=== PATIENT | male | born 1940 | race Caucasian/White ===

== ENCOUNTER 2016-07-08 12:21 | Emergency (ER) | payer MEDICARE, OTHER ==
[~2016-07-08] VITALS: Ht 182.9 cm; Wt 95.3 kg
[~2016-07-08 12:21] MED LIST: CHOL10003; LACT1CAP66 PO; LOSA100T16 PO; MULT-974 PO; OMG1KC; SILV50CR; TAMS0.4C9 PO; TMSL.4C PO
[2016-07-08] MEDS ORDERED: TAMS0.4C2 (14:30)
[2016-07-08 15:31] LABS: BASOPHILS # (AUTO) 0.1 10^3/uL (0.0-0.1); BASOPHILS % (AUTO) 1 % (0-10); EOSINOPHILS # (AUTO) 0.1 10^3/uL (0.0-0.3); EOSINOPHILS % (AUTO) 2 % (0-10); LYMPHOCYTES # (AUTO) 1.7 X 10^3 (1.0-4.0); LYMPHOCYTES % (AUTO) 23 % (12-44); MEAN CORPUSCULAR HEMOGLOBIN 31 PG (25-34); MEAN CORPUSCULAR HGB CONC 34 G/DL (32-36); MEAN CORPUSCULAR VOLUME 91 FL (80-99); MEAN PLATELET VOLUME 9.5 FL (7.4-10.4); MONOCYTES # (AUTO) 0.8 X 10^3 (0.0-1.0); MONOCYTES % (AUTO) 10 % (0-12); NEUTROPHILS # (AUTO) 4.9 X 10^3 (1.8-7.8); NEUTROPHILS % (AUTO) 65 % (42-75); PLATELET COUNT 193 10^3/uL (130-400); RED CELL DISTRIBUTION WIDTH 13.2 % (10.0-14.5); WHITE BLOOD COUNT 7.6 10^3/uL (4.3-11.0)
[2016-07-08 15:35] LABS: BILIRUBIN,URINE NEGATIVE (NEGATIVE); KETONES,URINE NEGATIVE (NEGATIVE); LEUKOCYTE ESTERASE ,URINE NEGATIVE (NEGATIVE); NITRITE,URINE NEGATIVE (NEGATIVE); PH,URINE 6 (5-9); PROTEIN,URINE NEGATIVE (NEGATIVE); UROBILINOGEN,URINE NORMAL (NORMAL)
[2016-07-08 15:41] LABS: ALANINE AMINOTRANSFERASE 29 U/L (0-55); ALBUMIN 4.3 G/DL (3.2-4.5); ANION GAP 10 MMOL/L (5-14); ASPARTATE AMINO TRANSFERASE 43 U/L (5-34); BLOOD UREA NITROGEN 13 MG/DL (7-18); BUN/CREATININE RATIO 13; CALCIUM 9.6 MG/DL (8.5-10.1); CARBON DIOXIDE 22 MMOL/L (21-32); CHLORIDE 108 MMOL/L (98-107); CREATININE SERUM 0.98 MG/DL (0.60-1.30); GFR ESTIMATED > 60; GLUCOSE 94 MG/DL (70-105); POTASSIUM 4.3 MMOL/L (3.6-5.0); SODIUM 140 MMOL/L (135-145)
[2016-07-08 15:47] LABS: WBC,URINE RARE /HPF
[2016-07-08] MEDS ORDERED: NS 100 ML (IVPB) BAG IV ONE (17:45)
[2016-07-08] MEDS ORDERED: IOHEXOL 350 MG/ML 100 ML (OMNIPAQUE 350) VIAL IV ONE (17:45)
[2016-07-08] MEDS ORDERED: NS IV 1000 ML 1,000 ML IV ONE (18:09)
[2016-07-08] MEDS ORDERED: BISACODYL 10 MG SUPP (DULCOLAX) PR ONE (18:30)
--- NOTE | 2016-07-08 18:45 | Diagnostic Imaging Report ---
PROCEDURE: CT abdomen and pelvis with contrast. TECHNIQUE: Multiple contiguous axial images were obtained through the abdomen and pelvis after administration of intravenous contrast. INDICATION: Inability to void or defecate. COMPARISON: 08/03/2014. FINDINGS: Lower chest: The lung bases are clear. No pericardial or pleural effusion. Peritoneum: No free intraperitoneal air or fluid. Stable hazy appearance of the mesenteric root fat, a nonspecific finding. Liver and biliary system: No concerning hepatic lesion. Stable calcifications in the inferior hepatic lobe. Low-attenuation liver suggests hepatic steatosis. The gallbladder is normal. No biliary duct dilation. Spleen and pancreas: Spleen is normal. The pancreas enhances normally without mass lesion or peripancreatic inflammatory changes. Adrenals: Normal. tract: The kidneys enhance normally without suspicious mass or obstruction. Simple cysts are present in the right kidney, all less than 1 cm in size. Urinary bladder is decompressed by a Beckwith catheter, which limits evaluation. Prostate is not enlarged. GI tract: Stable small hiatus hernia. No gastric wall thickening. No bowel obstruction. There is low-attenuation submucosal thickening of the transverse and descending colon without surrounding inflammatory changes. Rectosigmoid colon is mildly distended with a moderate amount of stool. Ascending colon has a normal appearance with stool present. The appendix is normal. Vasculature and Lymph nodes: Normal caliber aorta. No abdominal or pelvic lymphadenopathy. Musculoskeletal: No concerning osseous lesion. IMPRESSION: 1. No bowel obstruction. There is low-attenuation wall thickening of the transverse and descending colon without surrounding inflammatory changes. This appearance is commonly seen with a subacute colitis. Given that the central mesenteric artery is widely patent, this is likely infectious/inflammatory in etiology. 2. Stable small hiatus hernia. 3. Urinary bladder is decompressed by a Beckwith catheter, which limits evaluation. Dictated by: Dictated on workstation # [id number]
--- NOTE | 2016-07-08 18:58 | ED GI ---
General Chief Complaint: Abdominal/GI Problems Stated Complaint: PAIN IN ABDOMIN/CONSTIPATION Nursing Triage Note: Abd pain and unable to have a BM x2 Days. Having some difficulty Urinating. Took Mirilax without results Yesterday. Sepsis Screen: No Definite Risk History of Present Illness Time Seen By Provider: 17:00 Initial Comments Evaluation for inability to urinate since 0800 and constipation, since 07/06/16. He denies any nausea, diarrhea or vomiting. He denies any back problems or numbness, radiculopathy in the lower extremities. He ate breakfast this morning and has been having liquid since then did not eat anything for lunch. He was admitted in 2014 at this facility for a bowel obstruction. He saw Dr. Maurice recently for prostate exam and had a colonoscopy done at [facility] in the last few months Timing/Duration: 2-3 Days Severity/Quality: Moderate (generalized abdominal pain) Location: Generalized Abdomen Radiation: No Radiation Activities at Onset: None Modifying Factors: Improves With Lying down, Improves With Resting Associated Symptoms: Denies Symptoms Allergies and Home Medications Allergies Coded Allergies: Penicillins (Verified Allergy, Mild, 04/04/09) doxycycline (Verified Allergy, Unknown, 10/23/05) Home Medications Lactobacillus Combination No.4 1 Each Capsule, 1 TAB PO DAILY, (Reported) Losartan Potassium 100 Mg Tablet, 100 MG PO DAILY, (Reported) Multivitamin 1 Each Tablet, 1 TAB PO DAILY, (Reported) Tamsulosin HCl 0.4 Mg Cap.er.24h, 0.4 MG PO 1800, (Reported) Tamsulosin HCl 0.4 Mg Cap.er.24h, #90 (Reported) Review of Systems Constitutional: no symptoms reported, see HPI EENTM: No Symptoms Reported, See HPI Respiratory: No Symptoms Reported, See HPI Cardiovascular: No Symptoms Reported, See HPI Gastrointestinal: See HPI, Abdomen Distended, Abdominal Pain, Constipated, Denies Diarrhea, Denies Difficulty Swallowing, Denies Nausea, Poor Appetite, Denies Vomiting Genitourinary: See HPI, Other (inability to urinate) Musculoskeletal: no symptoms reported, see HPI Skin: no symptoms reported, see HPI Psychiatric/Neurological: No Symptoms Reported, See HPI Endocrine: No Symptoms Reported, See HPI Hematologic/Lymphatic: No Symptoms Reported, See HPI All Other Systems Reviewed Negative Unless Noted: Yes Past Jlwflmb-Orahhx-Pbxkam Hx Patient Social History Recent Foreign Travel: No Contact w/Someone Who Travel: No Recent Infectious Disease Expo: No Recent Hopitalizations: No Immunizations Up To Date Tetanus Booster (TDap): Unknown Seasonal Allergies Seasonal Allergies: No Surgeries HX Surgeries: Yes Surgeries: Abdominal Respiratory Hx Respiratory Disorders: Yes Respiratory Disorders: Pneumonia Cardiovascular Hx Cardiac Disorders: No Neurological Hx Neurological Disorders: No Reproductive System Hx Reproductive Disorders: No Sexually Transmitted Disease: No HIV/AIDS: No Genitourinary Hx Genitourinary Disorders: No Gastrointestinal Hx Gastrointestinal Disorders: Yes (bowel obstructions) Musculoskeletal Hx Musculoskeletal Disorders: No Endocrine Hx Endocrine Disorders: No HEENT HX ENT Disorders: No Cancer Hx Cancer: No Psychosocial Hx Psychiatric Problems: No Integumentary HX Skin/Integumentary Disorder: No Blood Transfusions Hx Blood Disorders: No Adverse Reaction to a Blood Tr: No Reviewed Nursing Assessment Reviewed/Agree w Nursing PMH: Yes Physical Exam Vital Signs VS - Last 72 Hours, by Label 07/08/16 07/08/16 13:23 20:51 Temp 96.0 96.0 Pulse 86 80 Resp 20 16 B/P (MAP) 142/74 Pulse Ox 96 96 O2 Flow Rate 0 0 Capillary Refill : Less Than 3 Seconds General Appearance: WD/WN, no apparent distress HEENT: PERRL/EOMI, normal ENT inspection, TMs normal, pharynx normal Neck: non-tender, full range of motion, supple, normal inspection Respiratory: chest non-tender, lungs clear, normal breath sounds Cardiovascular: normal peripheral pulses, regular rate, rhythm, no murmur Gastrointestinal: no organomegaly, no pulsatile mass, abnormal bowel sounds, distended, No guarding, No rebound, tenderness, No hernia, other (hypoactive bowel sounds) Rectal: normal exam, normal rectal tone, No tenderness, other (stool present) Extremities: normal range of motion, non-tender Male: normal genitalia, normal prostate, no hernia, No inguinal tenderness, No testicular tenderness, other (Beckwith catheter in place, 900 ml output since insertion) Neurologic/Psychiatric: no motor/sensory deficits, alert, normal mood/affect, oriented x 3, other (Power V/V L4-S1 bilat LEs. ) Skin: normal color, warm/dry Lymphatic: no adenopathy Progress/Results/Core Measures Results/Orders Lab Results Laboratory Tests Test 07/08/16 15:00 07/08/16 15:10 Range/Units Urine Color YELLOW Urine Clarity CLEAR Urine pH 6 5-9 Urine Specific [place] 1.010 L 1.016-1.022 Urine Protein NEGATIVE NEGATIVE Urine Glucose (UA) NEGATIVE NEGATIVE Urine Ketones NEGATIVE NEGATIVE Urine Nitrite NEGATIVE NEGATIVE Urine Bilirubin NEGATIVE NEGATIVE Urine Urobilinogen NORMAL NORMAL MG/DL Urine Leukocyte Esterase NEGATIVE NEGATIVE Urine RBC (Auto) NEGATIVE NEGATIVE Urine RBC RARE /HPF Urine WBC RARE /HPF Urine Crystals NONE /LPF Urine Bacteria NEGATIVE /HPF Urine Casts NONE /LPF Urine Mucus NEGATIVE /LPF Urine Culture Indicated NO White Blood Count 7.6 4.3-11.0 10^3/uL Red Blood Count 4.80 4.35-5.85 10^6/uL Hemoglobin 15.0 13.3-17.7 G/DL Hematocrit 44 40-54 % Mean Corpuscular Volume 91 80-99 FL Mean Corpuscular Hemoglobin 31 25-34 PG Mean Corpuscular Hemoglobin Concent 34 32-36 G/DL Red Cell Distribution Width 13.2 10.0-14.5 % Platelet Count 193 130-400 10^3/uL Mean Platelet Volume 9.5 7.4-10.4 FL Neutrophils (%) (Auto) 65 42-75 % Lymphocytes (%) (Auto) 23 12-44 % Monocytes (%) (Auto) 10 0-12 % Eosinophils (%) (Auto) 2 0-10 % Basophils (%) (Auto) 1 0-10 % Neutrophils # (Auto) 4.9 1.8-7.8 X 10^3 Lymphocytes # (Auto) 1.7 1.0-4.0 X 10^3 Monocytes # (Auto) 0.8 0.0-1.0 X 10^3 Eosinophils # (Auto) 0.1 0.0-0.3 10^3/uL Basophils # (Auto) 0.1 0.0-0.1 10^3/uL Sodium Level 140 135-145 MMOL/L Potassium Level 4.3 3.6-5.0 MMOL/L Chloride Level 108 H 98-107 MMOL/L Carbon Dioxide Level 22 21-32 MMOL/L Anion Gap 10 5-14 MMOL/L Blood Urea Nitrogen 13 7-18 MG/DL Creatinine 0.98 0.60-1.30 MG/DL Estimat Glomerular Filtration Rate > 60 BUN/Creatinine Ratio 13 Glucose Level 94 70-105 MG/DL Calcium Level 9.6 8.5-10.1 MG/DL Total Bilirubin 1.0 0.1-1.0 MG/DL Aspartate Amino Transf (AST/SGOT) 43 H 5-34 U/L Alanine Aminotransferase (ALT/SGPT) 29 0-55 U/L Alkaline Phosphatase 53 40-136 U/L Total Protein 7.0 6.4-8.2 G/DL Albumin 4.3 3.2-4.5 G/DL My Orders Orders - MARYANN PINEDA Ct Abdomen/Pelvis W (07/08/16 17:29) Iohexol Injection (Omnipaque 350 Mg/Ml 1 (07/08/16 17:45) Ns (Ivpb) (Sodium Chloride 0.9% Ivpb Bag (07/08/16 17:45) Saline Lock/Iv-Start (07/08/16 18:09) Ns Iv 1000 Ml (Sodium Chloride 0.9%) (07/08/16 18:09) Bisacodyl Suppository (Dulcolax Supposit (07/08/16 18:30) Na Phos/Na Biphos Enema (Fleet Enema Enrique (07/08/16 19:30) Medications Given in ED Current Medications Medications Dose Ordered Sig/Cheryl Route Start Time Stop Time Status Last Admin Dose Admin Bisacodyl 20 mg ONCE ONCE MN 07/08/16 18:30 07/08/16 18:31 DC 07/08/16 18:25 20 MG Iohexol 100 ml ONCE ONCE IV 07/08/16 17:45 07/08/16 17:46 DC 07/08/16 17:51 100 ML Sodium Biphosphate/ Sodium Phosphate 1 ea ONCE ONCE MN 07/08/16 19:30 07/08/16 19:31 DC 07/08/16 19:40 1 EA Sodium Chloride 100 ml ONCE ONCE IV 07/08/16 17:45 07/08/16 17:46 DC 07/08/16 17:51 80 ML Sodium Chloride 1,000 ml @ 0 mls/hr Q0M ONCE IV 07/08/16 18:09 07/08/16 18:10 DC 07/08/16 18:17 0 MLS/HR Vital Signs/I&O Vital Sign - Last 12Hours 07/08/16 07/08/16 13:23 20:51 Temp 96.0 96.0 Pulse 86 80 Resp 20 16 B/P (MAP) 142/74 Pulse Ox 96 96 O2 Flow Rate 0 0 Blood Pressure Mean: 96 Progress Note : Time: 17:00 Progress Note Initial evaluation completed, recommended CT abdomen and pelvis. Neurological exam intact, no symptoms and signs of cauda equina. [address] discussed with the patient and his , large retained stool in the rectum. No signs of bowel obstruction. CT and exam reviewed with Dr. Miller who agreed with the interpretation and plan of care. 1829 Dulcolax 10 mg suppository 2, inserted to the right and left of the stool mass in the rectum. Stool is soft. 1929 patient denies any results from Dulcolax suppositories. He is not on the toilet on 2 occasions. He is ambulating in the exam room. Recommended Fleet's enema. 1944 patient able to retain the enema for approximately 15 minutes. Ambulated to bathroom and reports that he had a small amount of stool. He is reporting decreased abdominal pain. Like to consider discharge to home. Discussed that we must remove the Beckwith catheter and see that he is able to urinate 2229 patient ambulated in room. Reports that he passing flatus. Reports small passage of stool and able to urinate. He verbalized understanding of importance to return to emergency department if symptoms worsen or he is unable to pass stool or urine. Diagnostic Imaging Diagonstic Imaging: CT Plain Films/CT/US/NM/MRI: abdomen, pelvis Comments NAME: ANAHI IBRAHIM Josh [facility] REC#: [id number] PT STATUS: REG ER : 1940 PHYSICIAN: MARYANN PINEDA ADMIT DATE: 07/08/16/ER Draft Date of Exam:07/08/16 CT ABDOMEN/PELVIS W PROCEDURE: CT abdomen and pelvis with contrast. TECHNIQUE: Multiple contiguous axial images were obtained through the abdomen and pelvis after administration of intravenous contrast. INDICATION: Inability to void or defecate. COMPARISON: 08/03/2014. FINDINGS: Lower chest: The lung bases are clear. No pericardial or pleural effusion. Peritoneum: No free intraperitoneal air or fluid. Stable hazy appearance of the mesenteric root fat, a nonspecific finding. Liver and biliary system: No concerning hepatic lesion. Stable calcifications in the inferior hepatic lobe. Low-attenuation liver suggests hepatic steatosis. The gallbladder is normal. No biliary duct dilation. Spleen and pancreas: Spleen is normal. The pancreas enhances normally without mass lesion or peripancreatic inflammatory changes. Adrenals: Normal. tract: The kidneys enhance normally without suspicious mass or obstruction. Simple cysts are present in the right kidney, all less than 1 cm in size. Urinary bladder is decompressed by a Beckwith catheter, which limits evaluation. Prostate is not enlarged. GI tract: Stable small hiatus hernia. No gastric wall thickening. No bowel obstruction. There is low-attenuation submucosal thickening of the transverse and descending colon without surrounding inflammatory changes. Rectosigmoid colon is mildly distended with a moderate amount of stool. Ascending colon has a normal appearance with stool present. The appendix is normal. Vasculature and Lymph nodes: Normal caliber aorta. No abdominal or pelvic lymphadenopathy. Musculoskeletal: No concerning osseous lesion. IMPRESSION: 1. No bowel obstruction. There is low-attenuation wall thickening of the transverse and descending colon without surrounding inflammatory changes. This appearance is commonly seen with a subacute colitis. Given that the central mesenteric artery is widely patent, this is likely infectious/inflammatory in etiology. 2. Stable small hiatus hernia. 3. Urinary bladder is decompressed by a Beckwith catheter, which limits evaluation. Dictated on workstation # [id number] Dict: 07/08/16 1811 Trans: 07/08/16 1844 [id number] Interpreted by: RUBI RANKIN MD Electronically signed by: Reviewed: Reviewed by Me Departure Impression Impression: Primary Impression: Constipation Qualified Codes: K59.00 - Constipation, unspecified Additional Impression: Acute urinary retention Disposition: 01 HOME, SELF-CARE Condition: Improved Departure-Patient Inst. Decision time for Depature: 20:15 Referrals: JENNIFER JOAQUIN DO (PCP/Family) Primary Care Physician Patient Instructions: Constipation, Adult (DC), Urinary Retention (DC) Add. Discharge Instructions: All discharge instructions reviewed with patient and/or family. Voiced understanding. Return to emergency department for increased abdominal pain, inability to urinate or pass stool. Increase oral fluid intake. Copy Copies To 1: JENNIFER JOAQUIN AMY ARNP Jul 08, 2016 18:58
[2016-07-08] MEDS ORDERED: FLEET ENEMA ADULT 1 EA BTL PR ONE (19:30)
[2016-07-08 20:51] VITALS: BP 138/76
--- OUTSIDE RECORDS SUMMARY | 2016-08-01 06:31 | XMS REPORT | Continuity of Care Document ---
Author Author [facility] Address Unknown Phone Unavailable Allergies Active Description Code Type Severity Reaction Onset Reported/Identified Relationship to Patient Clinical Status Yes doxycycline [id number] Drug Allergy Unknown N/A 10/23/2005 Yes Penicillins [id number] Drug Allergy Mild N/A 04/04/2009 Medications Problems Date Dx Coded Attending Type Code Diagnosis Diagnosed By 01/04/2011 Ot 787.99 OTHER GI SYSTEM SYMPTOMS 01/04/2011 Ot V12.72 PERSONAL HISTORY OF COLONIC POLYPS 11/20/2013 SAMI LAZAR, KAREEM Alonso Ot 289.2 MESENTERIC LYMPHADENITIS 11/20/2013 SAMI LAZAR, KAREEM Alonso Ot 564.00 UNSPEC CONSTIPATION 11/20/2013 SAMI LAZAR, KAREEM Aolnso Ot 599.60 URINARY OBSTRUCTION, UNSPECIFIED 11/20/2013 SAMI LAZAR, KAREEM Alonso Ot 789.00 ABDOMINAL PAIN, UNSPECIFIED SITE 08/03/2014 JENNIFER JOAQUIN DO Ot 780.79 08/03/2014 JENNIFER JOAQUIN DO Ot V12.61 08/05/2014 JENNIFER JOAQUIN DO Ot 276.51 08/05/2014 JENNIFER JOAQUIN DO Ot 560.9 08/05/2014 JENNIFER JOAQUIN DO Ot 569.49 08/05/2014 JENNIFER JOAQUIN DO Ot 600.90 08/05/2014 JENNIFER JOAQUIN DO Ot V03.82 08/05/2014 JENNIFER JOAQUIN DO Ot V12.59 08/05/2014 JENNIFER JOAQUIN DO Ot V12.72 08/06/2014 JENNIFER JOAQUIN DO Ot 276.51 DEHYDRATION 08/06/2014 JENNIFER JOAQUIN DO Ot 327.23 OBSTRUCTIVE SLEEP APNEA (ADULT) ( PEDIATR 08/06/2014 JENNIFER JOAQUIN DO Ot 401.9 HYPERTENSION NOS 08/06/2014 JENNIFER JOAQUIN DO Ot 560.9 INTESTINAL OBSTRUCT NOS 08/06/2014 JENNIFER JOAQUIN DO Ot 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 08/06/2014 JENNIFER JOAQUIN DO Ot 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, UNSPEC, 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 08/06/2014 JENNIFER JOAQUIN DO Ot V03.82 PROPHYLACTIC VACC AGAINST STREPTOCOCCUS 08/06/2014 JENNIFER JOAQUIN DO Ot V12.59 08/06/2014 JENNIFER JOAQUIN DO Ot V12.72 PERSONAL HISTORY OF COLONIC POLYPS 08/13/2014 JENNIFER JOAQUIN DO Ot 780.79 08/13/2014 JENNIFER JOAQUIN DO Ot V12.61 12/01/2015 JENNIFER JOAQUIN DO, Ot 780.79 OTH MALAISE FATIGUE 12/01/2015 JENNIFER JOAQUIN DO Ot V12.61 PERSONAL HISTORY, PNEUMONIA (RECURRENT ) 12/02/2015 JENNIFER JOAQUIN DO Ot R07.89 OTHER CHEST PAIN 12/02/2015 JENNIFER JOAQUIN DO Ot G47.33 OBSTRUCTIVE SLEEP APNEA (ADULT) ( PEDIATR 12/02/2015 JENNIFER JOAQUIN DO Ot I10 ESSENTIAL (PRIMARY) HYPERTENSION 12/02/2015 JENNIFER JOAQUIN DO Ot R07.89 OTHER CHEST PAIN 12/02/2015 JENNIFER JOAQUIN DO Ot R53.81 OTHER MALAISE 12/05/2015 JENNIFER JOAQUIN DO Ot 780.79 OT MALAISE FATIGUE 12/05/2015 JENNIFER JOAQUIN DO Ot V12.61 PERSONAL HISTORY, PNEUMONIA (RECURRENT ) 12/05/2015 JENNIFER JOAQUIN DO Ot G47.33 OBSTRUCTIVE SLEEP APNEA (ADULT) ( PEDIATR 12/05/2015 JENNIFER JOAQUIN DO Ot I10 ESSENTIAL (PRIMARY) HYPERTENSION 12/05/2015 JENNIFER JOAQUIN DO Ot R07.89 OTHER CHEST PAIN 12/05/2015 JENNIFER JOAQUIN DO Ot R53.81 OTHER MALAISE 12/26/2015 JENNIFER JOAQUIN DO Ot G47.33 OBSTRUCTIVE SLEEP APNEA (ADULT) ( PEDIATR 12/26/2015 JENNIFER JOAQUIN DO Ot I10 ESSENTIAL (PRIMARY) HYPERTENSION 12/26/2015 JENNIFER JOAQUIN DO Ot R07.89 OTHER CHEST PAIN 12/26/2015 JENNIFER JOAQUIN DO, Ot R53.81 OTHER MALAISE 07/08/2016 MARYANN PINEDAP Ot K44.9 DIAPHRAGMATIC HERNIA WITHOUT OBSTRUCTION 07/08/2016 EDWIN, MARYANN MARTP Ot K59.00 CONSTIPATION, UNSPECIFIED 07/08/2016 EDWIN, MARYANN MARTP Ot R33.9 RETENTION OF URINE, UNSPECIFIED 07/09/2016 MARYANN PINEDAP Ot K44.9 DIAPHRAGMATIC HERNIA WITHOUT OBSTRUCTION 07/09/2016 MARYANN PINEDAP Ot K59.00 CONSTIPATION, UNSPECIFIED 07/09/2016 EDWIN, MARYANN MARTP Ot R33.9 RETENTION OF URINE, UNSPECIFIED 07/16/2016 JENNIFER JOAQUIN DO Ot 780.79 OTH MALAISE FATIGUE 07/16/2016 JENNIFER JOAQUIN DO Ot V12.61 PERSONAL HISTORY, PNEUMONIA (RECURRENT ) 07/16/2016 JENNIFER JOAQUIN DO, Ot G47.33 OBSTRUCTIVE SLEEP APNEA (ADULT) ( PEDIATR 07/16/2016 JENNIFER JOAQUIN DO Ot I10 ESSENTIAL (PRIMARY) HYPERTENSION 07/16/2016 JENNIFER JOAQUIN DO Ot R07.89 OTHER CHEST PAIN 07/16/2016 JENNIFER JOAQUIN DO, Ot R53.81 OTHER MALAISE Procedures Results Test Result Range Complete urinalysis with reflex to culture - 07/08/16 15:00 Urine color determination YELLOW NRG Urine clarity determination CLEAR NRG Urine pH measurement by test strip 6 5- 9 Specific gravity of urine by test strip 1.010 1.016-1.022 Urine protein assay by test strip, semi-quantitative NEGATIVE NEGATIVE Urine glucose detection by automated test strip NEGATIVE NEGATIVE Erythrocytes detection in urine sediment by light microscopy NEGATIVE NEGATIVE Urine ketones detection by automated test strip NEGATIVE NEGATIVE Urine nitrite detection by test strip NEGATIVE NEGATIVE Urine total bilirubin detection by test strip NEGATIVE NEGATIVE Urine urobilinogen measurement by automated test strip (mass/volume) NORMAL NORMAL Urine leukocyte esterase detection by dipstick NEGATIVE NEGATIVE Automated urine sediment erythrocyte count by microscopy (number/high power field) RARE NRG Automated urine sediment leukocyte count by microscopy (number/high power field ) RARE NRG Bacteria detection in urine sediment by light microscopy NEGATIVE NRG Crystals detection in urine sediment by light microscopy NONE NRG Casts detection in urine sediment by light microscopy NONE NRG Mucus detection in urine sediment by light microscopy NEGATIVE NRG Complete urinalysis with reflex to culture NO NRG Complete blood count (CBC) with automated white blood cell (WBC) differential - 07/08/16 15:10 Blood leukocytes automated count (number/volume) 7.6 10*3/ uL 4.3-11.0 Blood erythrocytes automated count (number/volume) 4.80 10*6 /uL 4.35-5.85 Venous blood hemoglobin measurement (mass/volume) 15.0 g/dL 13.3-17.7 Blood hematocrit (volume fraction) 44 % 40-54 Automated erythrocyte mean corpuscular volume 91 [foz_us] 80-99 Automated erythrocyte mean corpuscular hemoglobin (mass per erythrocyte) 31 pg 25-34 Automated erythrocyte mean corpuscular hemoglobin concentration measurement ( mass/volume) 34 g/dL 32-36 Automated erythrocyte distribution width ratio 13.2 % 10.0-14.5 Automated blood platelet count (count/volume) 193 10*3/uL 130-400 Automated blood platelet mean volume measurement 9.5 [foz_us ] 7.4-10.4 Automated blood neutrophils/100 leukocytes 65 % 42-75 Automated blood lymphocytes/100 leukocytes 23 % 12-44 Blood monocytes/100 leukocytes 10 % 0-12 Automated blood eosinophils/100 leukocytes 2 % 0-10 Automated blood basophils/100 leukocytes 1 % 0-10 Blood neutrophils automated count (number/volume) 4.9 10*3 1.8-7.8 Blood lymphocytes automated count (number/volume) 1.7 10*3 1.0-4.0 Blood monocytes automated count (number/volume) 0.8 10*3 0.0-1.0 Automated eosinophil count 0.1 10*3/uL 0.0-0.3 Automated blood basophil count (count/volume) 0.1 10*3/uL 0.0-0.1 Comprehensive metabolic panel - 07/08/16 15:10 Serum or plasma sodium measurement (moles/volume) 140 mmol/ L 135-145 Serum or plasma potassium measurement (moles/volume) 4.3 mmol/L 3.6-5.0 Serum or plasma chloride measurement (moles/volume) 108 mmol /L 98-107 Carbon dioxide 22 mmol/L 21-32 Serum or plasma anion gap determination (moles/volume) 10 mmol/L 5-14 Serum or plasma urea nitrogen measurement (mass/volume) 13 mg/dL 7-18 Serum or plasma creatinine measurement (mass/volume) 0.98 mg /dL 0.60-1.30 Serum or plasma urea nitrogen/creatinine mass ratio 13 NRG Serum or plasma creatinine measurement with calculation of estimated glomerular filtration rate > NRG Serum or plasma glucose measurement (mass/volume) 94 mg/dL 70-105 Serum or plasma calcium measurement (mass/volume) 9.6 mg/dL 8.5-10.1 Serum or plasma total bilirubin measurement (mass/volume) 1.0 mg/dL 0.1-1.0 Serum or plasma alkaline phosphatase measurement (enzymatic activity/volume) 53 U/L 40-136 Serum or plasma aspartate aminotransferase measurement (enzymatic activity/ volume) 43 U/L 5-34 Serum or plasma alanine aminotransferase measurement (enzymatic activity/volume ) 29 U/L 0-55 Serum or plasma protein measurement (mass/volume) 7.0 g/dL 6.4-8.2 Serum or plasma albumin measurement (mass/volume) 4.3 g/dL 3.2-4.5 Encounters ACCT No. Visit Date/Time Discharge Status Pt. Type Provider Facility Loc./Unit Complaint [id number] 03/28/2014 11:36:01 03/28/2014 23: 59:59 [facility] Outpatient Taylor Saldivar [id number] 01/15/2014 10:46:03 01/15/2014 23: 59:59 [facility] Outpatient Taylor Saldivar
== END 2016-07-08 20:55 | disposition home or self-care (01) ==
LOC: EDUNIT# 12:21 → ER 12:24
DX: K59.00 Constipation, unspecified (principal); R33.9 Retention of urine, unspecified; K44.9 Diaphragmatic hernia without obstruction or gangrene
CPT/HCPCS: 36415; 51702; 74177; 80053; 81000; 85025; 96360

== ENCOUNTER 2016-08-25 06:41 | Day surgery (SDC) | payer MEDICARE, OTHER ==
[~2016-08-25] VITALS: Ht 182.9 cm; Wt 92.1 kg
[2016-08-25] VITALS (10 sets, daily range): BP systolic 125–160; BP diastolic 76–90
[~2016-08-25 06:41] MED LIST changes: +TAMS0.4C2
[2016-08-25] MEDS ORDERED: HEParin (CATH LAB) 2,000 ML IV ONE (06:50)
[2016-08-25] MEDS ORDERED: LIDOCAINE 1% INJ 20 ML (XYLOCAINE) VIAL ONE (06:50)
[2016-08-25] MEDS ORDERED: NS IV 1000 ML 1,000 ML ONE (06:50)
[2016-08-25] MEDS ORDERED: NS IV 1000 ML 1,000 ML IV SCH ×3 (07:01→09:09)
[2016-08-25 07:22] LABS: BILIRUBIN,URINE NEGATIVE (NEGATIVE); KETONES,URINE NEGATIVE (NEGATIVE); LEUKOCYTE ESTERASE ,URINE NEGATIVE (NEGATIVE); MEAN PLATELET VOLUME 8.9 FL (7.4-10.4); NITRITE,URINE NEGATIVE (NEGATIVE); PH,URINE 7 (5-9); PROTEIN,URINE NEGATIVE (NEGATIVE); RED BLOOD COUNT 5.07 10^6/uL (4.35-5.85); RED CELL DISTRIBUTION WIDTH 13.2 % (10.0-14.5); UROBILINOGEN,URINE NORMAL (NORMAL); WHITE BLOOD COUNT 5.3 10^3/uL (4.3-11.0)
[2016-08-25 07:33] LABS: PROTHROMBIN TIME PATIENT 12.8 SEC (12.2-14.7)
[2016-08-25] MEDS ORDERED: fentaNYL INJECTION 100 MCG/2 ML AMP ONE (07:36)
[2016-08-25] MEDS ORDERED: MIDAZOLAM 5 MG/5 ML (VERSED) VIAL ONE (07:36)
[2016-08-25 07:44] LABS: ALANINE AMINOTRANSFERASE 28 U/L (0-55); ALBUMIN 4.4 G/DL (3.2-4.5); ANION GAP 8 MMOL/L (5-14); ASPARTATE AMINO TRANSFERASE 34 U/L (5-34); BILIRUBIN,TOTAL 0.8 MG/DL (0.1-1.0); BLOOD UREA NITROGEN 11 MG/DL (7-18); BUN/CREATININE RATIO 11; CALCIUM 9.7 MG/DL (8.5-10.1); CARBON DIOXIDE 24 MMOL/L (21-32); CHLORIDE 108 MMOL/L (98-107); CHOLESTEROL 135 MG/DL (< 200); CREATININE SERUM 0.97 MG/DL (0.60-1.30); DIRECT LDL 101 MG/DL (1-129); GFR ESTIMATED > 60; GLUCOSE 100 MG/DL (70-105); POTASSIUM 4.2 MMOL/L (3.6-5.0); SODIUM 140 MMOL/L (135-145); TRIGLYCERIDES 105 MG/DL (<150); VLDL CHOLESTEROL 21 MG/DL (5-40)
--- NOTE | 2016-08-25 08:33 | Diagnostic Imaging Report ---
Portable upright radiograph of the chest. INDICATION: Hypertension. Chest pain. FINDINGS: The lungs appear clear. The heart size is at the upper limits of normal. No effusion or pneumothorax. The mediastinum and judi appear unremarkable. IMPRESSION: Unremarkable exam. Dictated by: Dictated on workstation # [id number]
--- NOTE | 2016-08-25 08:34 | Cardiac Procedure Note-CS/ASA ---
Pre-Procedure Note Pre-Op Procedure Note H&P Reviewed The H&P was reviewed, patient examined and no changes noted. Date H&P Reviewed: August 25, 2016 Time H&P Reviewed: 08:34 Conscious Sedation Pre-Proced Time Reviewed: 08:34 ASA Class: 3 Airway Mallampati Classification: ([place] appropriate class) I. II. III, IV Lungs Heart ASA score ASA 1: a normal healthy patient x ASA 2: a patient with a mild systemic disease (mid diabetes, controlled hypertension, obesity ASA 3: a patient with a severe systemic disease that limits activity (angina , COPD, prior Myocardial infarction) ASA 4: a patient with an incapacitating disease that is a constant threat to life (CHF, renal failure) ASA 5: a moribund patient not expected to survive 24 hrs. (ruptured aneurysm) ASA 6: a declared brain patient whose organs are being harvested. For emergent operations, add the letter E after the classification Grade 3 Sedation Plan: Analgesia, Amnesia, Plan communicated to team members, Discussed options with patient/fam, Discussed risks with patient/fam Note The patient is an appropriate candidate to undergo the planned procedure, sedation, and anesthesia. The patient immediately re-assessed prior to indication. STIVEN BLUE MD August 25, 2016 08:34
[2016-08-25] MEDS ORDERED: HEParin (CATH LAB) 1,000 ML IV ONE (08:44)
--- NOTE | 2016-08-25 09:14 | Discharge Inst-Post CATH ---
Discharge Inst-CATH Post Cardiac Cath D/C Inst Follow Up/Plan Appointment with Dr Mckeon's office in 2- 4 weeks CARDIAC CATH DISCHARGE INSTRUCTIONS *Hold Metformin for 48 hours post heart cath. ACTIVITY * Go Home directly and rest. * Limit activity of the leg (or wrist if it was used) for 7 days including aerobics, swimming, jogging, bicycling, etc. * Restrict stair-climbing for 7 days if possible, if not, climb up with your non -cath leg, then bring together on the same step. * Avoid lifting, pushing, pulling or excessive movement of the affected extremity for 7 days. * Customary sexual activity may be resumed after 2 days-use caution not to use a position that strains or causes pain to the affected extremity. * No driving for 24 hours. * NO SMOKING. * Avoid straining for bowel movements for 7 days. * Gentle walking on level ground is allowed. * Returning to work will depend on the type of procedure and the results. Your doctor will discuss this with you. CALL YOUR DOCTOR FOR ANY OF THE FOLLOWING: *If bleeding from the puncture site occurs- Apply gentle pressure to site with clean cloth and call your doctor or EMS. * If a knot or lump forms under the skin, increases in size, or causes pain. * If bruising appears to be worsening or moving further down your leg instead of disappearing. * Temperature above 101 F. CARE OF YOUR GROIN INCISION; * Bruising or purple discoloration of the skin near the puncture site is common. * You may shower only, no bathtub bathing for 5 days. Be careful to avoid slipping as your leg may feel stiff. * If a closure device was used on your femoral artery, please see the attached guide regarding care of the device and your leg. * REMOVE the dressing from your groin the next day after your procedure in the shower. CARE OF YOUR WRIST INCISION; * Bruising or purple discoloration of the skin near the puncture site is common. * You may shower. * DO NOT submerge wrist. * Remove dressing in 24 hours. STIVEN MCKEON MD August 25, 2016 09:14
[2016-08-25] MEDS ORDERED: PATIENT MAY USE OWN MEDS, ALL PO SCH (09:15)
--- NOTE | 2016-08-26 08:41 | CARDIAC CATHETERIZATION ---
DATE OF SERVICE: 08/25/2016 CARDIAC CATHETERIZATION BRIEF HISTORY OF PRESENT ILLNESS: The patient is a 76-year-old gentleman with history of hypertension, hyperlipidemia. The patient had an abnormal stress test. He was scheduled for left heart catheterization, possible PTCA. TopofForm PROCEDURE NOTE: After explaining the procedure to the patient, all pros and cons were explained, all questions were answered. The patient signed the consent. Then he was placed on the cardiac catheterization laboratory. Right groin was prepped in a sterile fashion. Local anesthesia applied to the right groin. A 6-Persian sheath was placed in the right femoral artery. A combination of right and left Craig catheters were used to access the right and left coronary system. Multiple views were obtained. A pigtail catheter was advanced to the left ventricular cavity. Pressure was measured. Pullback LV to aorta was done. Aortic arch angiogram was done. At the end of the procedure, sheath was removed. Manual pressure applied. Hemostasis achieved. FINDINGS: HEMODYNAMICS: LV pressure 119/13, end diastolic pressure of 13, aortic pressure 112/57, mean of 55. No significant gradient across the aortic valve. ANATOMY: 1. Left main coronary artery is bifurcating into left anterior descending and left circumflex artery with no obstructive disease. 2. Left anterior descending artery is moderate in size, wrapping around the apex with no obstructive disease. 3. Left circumflex artery is a codominant artery with no significant obstructive disease. 4. Right coronary artery is moderate in size, codominant artery with mild disease, nonobstructive disease. 5. No left ventriculogram was done. Normal left ventricular end diastolic pressure. 6. Aortic arch angiogram appeared to be normal in size, no dissection or aneurysm. Origins of the innominate artery, left carotid and left subclavian arteries appeared to be slightly tortuous, but no objective disease was noted. CONCLUSIONS: 1. Mild coronary artery disease, no significant obstructive disease. 2. Normal aortic arch and great neck vessels. 3. Normal left ventricular end diastolic pressure. DISCUSSION AND RECOMMENDATIONS: Medical therapy is recommended. No intervention is warranted. FINAL DIAGNOSIS: 1. Coronary artery disease. 2. Shortness of breath. 3. Hypertension. Job ID: [id number] DocumentID: [id number] Dictated Date: 08/25/2016 09:10:36 [place] Date: 08/25/2016 19:37:05 Dictated By: STIVEN BLUE MD
== END 2016-08-25 13:25 | disposition home or self-care (01) ==
LOC: CATH 06:41 → SURG 09:30 → CATH 13:25
PROVIDERS: ATTEND Internal Medicine Cardiovascular Disease
DX: R94.39 Abnormal result of other cardiovascular function study (principal); I25.10 Atherosclerotic heart disease of native coronary artery without angina pectoris; E78.5 Hyperlipidemia, unspecified; I10 Essential (primary) hypertension; R06.02 Shortness of breath; G47.33 Obstructive sleep apnea (adult) (pediatric); Z79.899 Other long term (current) drug therapy
CPT/HCPCS: 36221; 36415; 71010; 80053; 80061; 81000; 85027; 85610; 85730; 87081; 93005; 93458

== ENCOUNTER → 2022-08-13 | Outpatient (CLI) | payer MEDICARE, OTHER ==
[~2022-08-13] VITALS: Ht 182 cm; Wt 88.0 kg
[~2022-08-13] MED LIST changes: +CATHETER FLUSH 10 ML SYR IVP PRN; +REGADENOSON 0.4 MG/5 ML SYR (LEXISCAN) IV ONE
[2022-08-13 08:00] VITALS: BP 176/90
== END ==
LOC: CARD 07:00
PROVIDERS: ATTEND Internal Medicine
DX: R53.83 Other fatigue (principal)
CPT/HCPCS: 78452; 93017; A9502